=== PATIENT | male | born 1990 | race Caucasian/White ===

== ENCOUNTER → 2019-04-14 | Outpatient (CLI) | payer OTHER ==
--- NOTE | 2019-04-14 10:53 | XR ---
EXAMINATION TYPE: XR thoracic spine complete DATE OF EXAM: 04/14/2019 CLINICAL HISTORY: Fall with mid back pain. TECHNIQUE: Frontal, lateral, and swimmer's view of thoracic spine are obtained. COMPARISON: None. FINDINGS: Mid and lower thoracic spine show satisfactory alignment without evidence of acute fracture or dislocation. Upper thoracic spine is slightly obscured. Vertebral body heights and disc space hei ghts are preserved. Visualized ribs are unremarkable. IMPRESSION: Upper thoracic spine is slightly obscured secondary to patient body habitus on the swimme r's view. Within the mid and lower thoracic spine there is no acute fracture or malalignment is seen.
--- NOTE | 2019-04-14 10:55 | XR ---
EXAMINATION TYPE: XR lumbar spine 2 or 3V DATE OF EXAM: 04/14/2019 CLINICAL HISTORY: Fall, trauma, back pain TECHNIQUE: Frontal and lateral images of the lumbar spine are obtained. COMPARISON: None FINDINGS: There are 5 lumbar type vertebral bodies identified. The lumbar spine shows satisfactory alignment without evidence of acute fracture or dislocation. Vertebral body heights and disk space he ights are within normal limits. The overlying soft tissue appears unremarkable. IMPRESSION: No acute fracture or malalignment is seen in the lumbar spine.
== END | disposition home or self-care (01) ==
LOC: RADXRMAIN 09:45
PROVIDERS: ATTEND Family Medicine
DX: S34.109A Unspecified injury to unspecified level of lumbar spinal cord, initial encounter (principal); S24.109A Unspecified injury at unspecified level of thoracic spinal cord, initial encounter
CPT/HCPCS: 72072; 72100